=== PATIENT | male | born 1990 | race Caucasian/White ===

== ENCOUNTER 2024-06-19 10:43 | Emergency (ER) | payer SELFPAY ==
[2024-06-19 10:53] VITALS: BP 99/60; PULSE 66; RESP 16; TEMP 97.7; BMI 26.6
[2024-06-19] MEDS ORDERED: BACITRACIN ZINC 15 GM TUBE TOPICAL OINTMENT ONE (11:22)
== END 2024-06-19 12:29 | disposition home or self-care (01) ==
LOC: JERFT 10:43
DX: S01.311A Laceration without foreign body of right ear, initial encounter (principal); W55.03XA Scratched by cat, initial encounter
CPT/HCPCS: 99283-25

== ENCOUNTER 2024-06-27 08:38 | Emergency (ER) | payer SELFPAY ==
[2024-06-27 08:42] VITALS: BP 123/77; PULSE 66; RESP 18; TEMP 98; BMI 21.7
[2024-06-27] MEDS ORDERED: ACETAMINOPHEN 325 MG TABLET (FP) ONE (08:54)
[2024-06-27] MEDS: ACETAMINOPHEN 325 MG TABLET (FP) PO ONE (09:00)
== END 2024-06-27 10:46 | disposition home or self-care (01) ==
LOC: JERFT 08:38
DX: S93.601A Unspecified sprain of right foot, initial encounter (principal); W22.8XXA Striking against or struck by other objects, initial encounter
CPT/HCPCS: 73630-TC-RT-FY; 99283-25